=== PATIENT | female | born 1955 | race Caucasian/White ===

== ENCOUNTER 2021-03-01 23:12 | Inpatient (IN) | payer OTHER ==
[~2021-03-01] VITALS: Ht 152.4 cm; Wt 86.2 kg
[2021-03-01 23:15] VITALS: BP 154/81
[2021-03-02 00:11] LABS: ABSOLUTE NEUTROPHILS 6.6 thou/uL (1.4-8.2); BASOPHILS 0.6 % (0.0-2.0); EOSINOPHILS 2.7 % (0.0-3.0); HEMATOCRIT 42.3 % (37.0-47.0); HEMOGLOBIN 14.1 gm/dL (12.0-15.0); LYMPHOCYTES 17.1 % (24.0-44.0); MCH 31.3 pg (26.0-34.0); MCHC 33.4 g/dL (28.0-37.0); MCV 93.5 fL (80.0-100.0); MONOCYTES 5.9 % (1.0-8.0); PLATELET COUNT 203 thou/uL (150-400); POLYS 73.7 % (36.0-66.0); RBC 4.53 mil/uL (4.20-5.00); RDW 12.7 % (10.5-14.5)
[2021-03-02 00:16] LABS: CALCIUM 9.1 mg/dL (8.5-10.1); CREATININE 1.3 mg/dL (0.6-1.0); POTASSIUM 4.3 mmol/L (3.5-5.1)
[2021-03-02 00:23] LABS: ALBUMIN 3.4 g/dL (3.4-5.0); TOTAL BILIRUBIN 0.5 mg/dL (0.2-1.0); TOTAL PROTEIN 6.7 g/dL (6.4-8.2)
[2021-03-02 00:55] LABS: URINE BILIRUBIN NEGATIVE (Negative); URINE BLOOD 3+ (Negative); URINE CLARITY SL CLOUDY; URINE COLOR YELLOW; URINE GLUCOSE-RANDOM* TRACE (Negative); URINE KETONES NEGATIVE (Negative); URINE PROTEIN (DIPSTICK) 2+ (Negative); URINE SPECIFIC GRAVITY >= 1.030 (1.005-1.035)
[2021-03-02 00:57] LABS: URINE LEUKOCYTES-REFLEX 1+ (Negative); URINE NITRITE-REFLEX POSITIVE (Negative)
[2021-03-02 01:03] LABS: CASTS None Seen /LPF (None Seen); CRYSTALS None Seen /LPF (None Seen); MUCUS 4-6 Moderate strn/LPF (None Seen); SQUAMOUS 0-3 Few /LPF (0-3); URINE RBC >20 Many /HPF (NONE SEEN); WBC CLUMPS Moderate (None Seen)
[2021-03-02] MEDS ORDERED: BYDUREON B2 MG/0.85 SUBQ (01:09)
[2021-03-02] MEDS ORDERED: ASA81BEC PO (01:12)
[2021-03-02] MEDS ORDERED: METFORMIN HCL500 M3 PO (01:13)
[2021-03-02] MEDS ORDERED: CITALOPRAM HBR40 MG PO (01:13)
[2021-03-02] MEDS ORDERED: GLIMEPIRIDE4 MG PO (01:13)
[2021-03-02] MEDS ORDERED: OMEPRAZOLE40 MG PO (01:13)
[2021-03-02] MEDS ORDERED: COZAAR 25 MG TA25 M1 PO (01:14)
[2021-03-02] MEDS ORDERED: MELOXICAM15 MG PO (01:14)
[2021-03-02] MEDS ORDERED: NEURONTIN300 MG PO (01:15)
[2021-03-02 05:50] VITALS: BP 117/66
[2021-03-02 05:55] VITALS: BP 118/68
[2021-03-02 07:32] VITALS: BP 117/79
--- NOTE | 2021-03-02 08:52 | EKG ---
[address] [place] [address] ELECTROCARDIOGRAM REPORT Name: YARA CARRILLO Room #: 459-P ADM IN M.R.#: [id number] Admission: 03/02/21 Attend Phys: Malik Munson MD Discharge: Date of : 51 Report #: [id number] [facility] ED Test Date: 2021-03-01 Test Time: 23:57:28 Pat Name: YARA CARRILLO Department: Room: [facility] Gender: F Senior Planner: [email or web address] : 1955 Requested By: Seun Murphy Order Number: [id number] MD: Romero Chappell Measurements Intervals [place] Rate: 84 P: 46 SC: 147 QRS: -14 QRSD: 91 T: 9 QT: 398 QTc: 471 Interpretive Statements Sinus rhythm Low voltage, precordial leads No previous ECG available for comparison Electronically Signed On 03-02-2021 8:51:30 DATA MODELING ARCHITECT by Romero Chappell [email or web address] <ELECTRONICALLY SIGNED> By: Romero Chappell MD, [facility] 03/02/21 0851 [id number] Romero Chappell MD, FACC /EPI
--- NOTE | 2021-03-02 14:43 | NUR ---
PT ADMITTED RELATED TO LOWER EXTREMITY CELLULITIS. CM REVIEWED CHART AND SPOKE WITH CARE TEAM. CM MET WITH PT AND DTR AT BEDSIDE THIS DAY. PT APPEARED TO BE A&O X4. CM ROLE INTRODUCED. PT INDICATED SHE LIVES ALONE IN A HOUSE WITH 1 STEP INSIDE AND NONE TO ENTER. PT INDICATED SHE HAD BEEN INDEPEDNENT WITH GAIT AND ADLS OPERATING ROOM COORDINATOR. PT INDICATED SHE PLANS TO RETURN HOME ONCE MEDICALLY STABLE. 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 UROLOGY CONSULTED ANTICIPATING STENT PLACEMENT. DTR HAD INDICATED THAT MED CAN BE CALLED INTO A [facility] NEAR THE HOTEL THEY ARE STAYING AT AND THAT THEY ANTICPATE RETURNING TO [place] SHORTLY UPOD DC. CM FOLLOWING SHOULD ANY DC NEEDS ARISE.
[2021-03-02 15:15] VITALS: BP 128/76
--- NOTE | 2021-03-02 17:50 | NUR ---
PAGED DR. NAVARRO AT 1726 REGARDING LOW BS 68. PAGED AGAIN AT 1730. 1740 DR. NAVARRO RETURNED PAGE. INFORMED OF LOW BS, STILL NPO, NO NOTES ABOUT WHETHER OR NOT PT IS TO HAVE SURGERY. DR NAVARRO GAVE ORDERS FOR PT TO BE PUT ON FULL LIQUID DIET. ORDERS ENTERED.
[2021-03-02 19:41] VITALS: BP 131/84
--- NOTE | 2021-03-02 23:26 | NUR ---
PT ALERT AND ORIENTED X 4. RAC IV INTACT AND PATENT. PT NPO AFTER MIDNIGHT FOR PROCEDURE. PT C/O PAIN IN LEFT ABDOMEN. MORPHINE GIVEN ORDERED. BED ALARM ON FOR SAFETY. PT APPEARS TO BE SLEEPING ON HOURLY ROUNDS.
[2021-03-03 07:06] LABS: CALCIUM 8.5 mg/dL (8.5-10.1); CREATININE 1.6 mg/dL (0.6-1.0); PHOSPHORUS 4.2 mg/dL (2.6-4.7); POTASSIUM 4.2 mmol/L (3.5-5.1)
[2021-03-03 07:30] VITALS: BP 102/65
--- NOTE | 2021-03-03 15:27 | NUR ---
PT WENT FOR STENT PLACEMENT THIS AFTERNOON. CASE TEAM INDICATED THAT PT WILL LIKELY BE DC READY TOMORROW. PT'S AND DTR TO RETURN TO [place] SOON. PT'S MEDS TO BE CALLED INTO PHARMACY ON FILE TO BE FILLED UPON DC. NO CM INTERVENTION INDICATED.
--- NOTE | 2021-03-03 17:05 | NUR ---
Pt A & O x4. Pt is independent with cares and ADLs. Pt is room air. Pt received medications as ordered. Pt is able to make needs known. Pt is currentlt in procedure.
[2021-03-03 18:29] VITALS: BP 104/64
--- NOTE | 2021-03-03 18:42 | NUR ---
Pt arrived to room from procedure. Pt Vs stable. Pt denies pain. Pt is currently on 2L of 02 per nasal cannula. Pt is able to make needs known
[2021-03-03 19:13] VITALS: BP 136/85
[2021-03-03 21:11] VITALS: BP 145/95
--- NOTE | 2021-03-04 02:15 | NUR ---
assumed care approx 1900 evening 03/03. pt alert and oriented x4, pleasant and cooperative. pt back from procedure before shift change. pt denied pain. pt up to void with blood tinged urine. pt with blood sugar 325 and orders recd to give insulin per protocol. pt appears to be sleeping soundly. bed alarm on and call light in reach. will continue to monitor.
[2021-03-04 06:38] LABS: ALBUMIN 3.2 g/dL (3.4-5.0); CALCIUM 8.8 mg/dL (8.5-10.1); CREATININE 1.3 mg/dL (0.6-1.0); PHOSPHORUS 3.8 mg/dL (2.6-4.7); POTASSIUM 5.1 mmol/L (3.5-5.1)
[2021-03-04] MEDS ORDERED: CEFUROXIME500 MG PO (10:03)
[2021-03-04 10:49] VITALS: BP 145/95
--- NOTE | 2021-03-04 11:12 | NUR ---
ASSUMED PT CARE THIS AM. PT A&OX4, ABLE TO MAKE NEEDS KNOWN. PATIENT REPORTING NO PAIN. PATIENT REPORTS SOME BLOOD IN URINE, BUT NO PAIN. PATIENT IV REMAINS PATENT. PATIENT IS UP AD ALBERTO IN ROOM. CALL LIGHT WITHIN REACH.
--- NOTE | 2021-03-09 11:07 | PATH ---
[facility] [address] [place] [address] PATHOLOGY RPT PROCEDURE Name: YARA CARRILLO Room #: 459-P DIS IN M.R.#: [id number] Admission: 03/02/21 Date of : 51 Discharge: 03/04/21 Report #: [id number] Path Case #: [id number] [facility] Accession Number: [id number] . 01 Material submitted: . ureter - LEFT URETERAL STONE. Modifiers: left . 01 Clinical history: . CYST W/ URETEROSCOPY, STONE MANIPULATION LEFT KIDNEY STONE . 02 Diagnosis: Left ureteral stone: - Consistent with calculi. - The specimen is sent out for further processing. - Report pending outside analysis with results to follow in an addendum. [facility] 03/06/2021 1531 Local . 02 Addendum: . Outside report received from [facility], [employer] [place], [address], on case [id number], labeled with their number [id number], dated 03/08/2021. . Stone Analysis Report . Stone Composition Composition (percent) Uric Acid 93 Dried Blood 3 Ammonium Urate 4 TOTAL: 100 . . The stone is submitted in fragmented form with no discernible core. It is cream and brown in color, weighs approximately 80 milligrams and displaces less than 0.1 cc of distilled water. THE CALCULUS IS COMPOSED OF A MIXTURE OF URIC ACID, AMMONIUM URATE AND DRIED BLOOD. . LEFT KIDNEY. THE SPECIMEN WAS ANALYZED BY [facility]. . . . . . . Easton Gee MD [place] [address] PATHOLOGY RPT PROCEDURE Name: YARA CARRILLO Room #: 459-[facility] IN M.R.#: [id number] Admission: 03/02/21 Date of : 51 Discharge: 03/04/21 Report #: [id number] Path Case #: [id number] . A complete copy of the report is on file. . Technical and Professional services for the special studies performed by [facility], [address] [place] [id number]. . (ANK:marjorie 03/08/2021) . AZJ/03/08/2021 Addendum Electronically Signed by Rosy Wasserman MD PATHOLOGIST . 02 Electronically signed: . Rosy Wasserman MD, Pathologist NPI- [id number] . 01 Gross description: . The specimen is received fresh, labeled "Yara Carrillo, left ureteral stone". Received are multiple orange-brown calculi ranging in size from 0.3-0.5 cm. The specimen is forwarded to sendouts for further processing. ([facility]; 03/06/2021) NRI/NRI 03/06/2021 1527 Local . 02 Pathologist provided ICD-10: N20.1 . 02 CPT . 574274 Specimen Comment: A courtesy copy of this report has been sent to [phone], [phone] Specimen Comment: [id number] Specimen Comment: Report sent to / DR NAVARRO Specimen Comment: A duplicate report has been generated due to demographic updates. Performed at: 01 [facility] [address] [place] [address] [id number] MD Brian Erazo MD Phone: [phone] Performed at: [address] [id number] W[address] Phone: [phone]
== END 2021-03-04 11:49 | disposition home or self-care (01) | DRG 661 ==
LOC: ER 23:12 → 4W 03-02 01:44 → EROBS 03-02 01:44 → 4W 03-02 05:55
PROVIDERS: Emergency Medicine; ADMIT Hospitalist; ATTEND Hospitalist
PROC: BT1F1ZZ Fluoroscopy of Left Kidney, Ureter and Bladder using Low Osmolar Contrast (ICD-10-PCS; principal; 2021-03-03)
PROC: 0T778DZ Dilation of Left Ureter with Intraluminal Device, Via Natural or Artificial Opening Endoscopic (ICD-10-PCS; principal; 2021-03-03)
DX: N13.6 Pyonephrosis (principal); N17.9 Acute kidney failure, unspecified; E11.40 Type 2 diabetes mellitus with diabetic neuropathy, unspecified; I10 Essential (primary) hypertension; E78.5 Hyperlipidemia, unspecified; K21.9 Gastro-esophageal reflux disease without esophagitis; Z88.8 Allergy status to other drugs, medicaments and biological substances; Z20.822 Contact with and (suspected) exposure to COVID-19
CPT/HCPCS: 10040; 50010; 50101; 50164; 51516; 51620; 51767; 56674; 56815; 57160; 58510; 58565; 62110; 62900; 70005